=== PATIENT | male | born 1935 | race Caucasian/White ===

== ENCOUNTER 2016-03-05 10:38 | Observation (INO) ==
--- NOTE | 2016-03-05 10:59 | Emergency Department Note ---
Disposition Clinical Impression: Atrial fibrillation, Dyspnea on exertion, Hypertension, Hyperlipidemia, Obesity , Frail elderly Disposition: Admitted As Inpatient Referrals: NO,PCP [Non-Partnered Physician] - Forms: ED Satisfaction Letter General Adult HPI - General Chief complaint: ED Shortness of Breath/Dyspnea Stated complaint: Shortness of breath, abnormal EKG Time Seen by Provider: 03/05/16 10:58 Source: patient, family Limitations: no limitations - History of Present Illness HPI Narrative: 81-year-old male with a history of cardiac arrhythmia and ablation reports to the emergency department with concerns for shortness of breath. The patient has been progressively short of breath over the last several months, things are getting much worse per his son. The patient can barely get out of the house and get to a car without becoming markedly short of breath. The patient's son was worried so he took the patient to see his primary care physician who noted an abnormal EKG and cited concerns regarding dyspnea likely secondary to a cardiac source. ED evaluation was recommended. The patient saw his primary care physician yesterday, he came in this morning. The patient has not had a significant cough. He does not have any underlying COPD asthma or previous history of DVT PE or cancer. There is no history of coronary artery disease. The patient has no history of arrhythmia status post ablation. There is concern for atrial fibrillation. The patient is not anticoagulated. He has not any strokelike symptoms, no dysarthria or confusion or any problem walking and talking hearing seeing or speaking. There is been no recent syncope. No fever abdominal pain vomiting diarrhea or acute back pain reported or noted. The patient describes significant exertional dyspnea which is worsening. There is no history of tomasz chest pain left arm or left jaw pain. The patient is elderly, hypercholesterolemia, and hypertensive. Onset (ago): day(s) Pain Scale: 0 - Related Data Allergies Allergy/AdvReac Type Severity Reaction Status Date / Time Penicillins Allergy See Verified 03/05/16 10:45 Comments All systems ED: reviewed and negative except as stated. Past Medical History - Past Medical History Medical history: Reports: hyperlipidemia, hypertension, other - Social History Smoking Status: Never smoker Alcohol use: Reports: occasionally Physical Exam - General Limitations: no limitations General appearance: alert, in no apparent distress - Head Head exam: atraumatic, normocephalic, normal inspection - Eye Eye exam: Present: normal appearance, PERRL, EOMI - ENT ENT exam: normal exam, normal oropharynx, mucous membranes moist, normal external ear exam - Neck Neck exam: Present: normal inspection, full ROM, trachea midline. Absent: tenderness - Chest Chest inspection: Present: symmetric chest wall rise. Absent: tenderness - Respiratory Respiratory exam: Present: normal lung sounds bilaterally. Absent: respiratory distress - Cardiovascular Cardiovascular exam: Present: regular rate, irregular rhythm - Abdominal Exam Abdominal exam: Present: soft, Non-Tender. Absent: tenderness, distention, guarding, rebound, rigidity - Extremities Exam Extremities exam: Present: normal inspection, full ROM, normal capillary refill. Absent: tenderness, pedal edema, joint swelling, calf tenderness - Expanded Lower Extremity Exam Lower leg exam: Absent: Homans' sign Neurovascular/Tendon exam: Absent: motor deficit, sensory deficit, tendon deficit - Back Exam Back exam: Present: normal inspection, full ROM. Absent: tenderness, CVA tenderness (R), CVA tenderness (L), vertebral tenderness - Neurological Exam Neurological exam: Present: alert, oriented X3, CN II-XII intact. Absent: motor sensory deficit - Psychiatric Psychiatric exam: Present: normal affect, normal mood - Skin Skin exam: Present: warm, dry, intact, normal color. Absent: rash, cyanosis, diaphoresis, erythema, pallor, mottled Course Vital Signs Temperature 98.4 F 03/05/16 10:39 Pulse Rate 69 03/05/16 10:39 Respiratory Rate 18 03/05/16 10:39 Blood Pressure 143/77 03/05/16 10:39 O2 Sat by Pulse Oximetry 94 L 03/05/16 10:39 Temperature 98.4 F 03/05/16 10:39 Pulse Rate 83 03/05/16 13:00 Respiratory Rate 18 03/05/16 13:00 Blood Pressure 135/81 03/05/16 13:00 O2 Sat by Pulse Oximetry 97 03/05/16 13:00 Oxygen Delivery Oxygen Delivery Room Air Medical Decision Making - [facility] Narrative Medical decision making narrative: The patient is elderly, hyperlipidemic, hypertensive, obese, has not had any recent provocative cardiac testing, and appears to be in cardiac arrhythmia/ atrial fibrillation which is not his usual rhythm. He had a remote ablation, he is not anticoagulated. The patient has had significant dyspnea on exertion which has been progressive. Based on his vascular risk factors, new onset EKG findings, and acute symptomatology, I felt it would be appropriate to admit the patient to the hospital. I reviewed the case with the hospitalist on-call who has accepted the patient to their care. Aspirin was given in the ED. - Lab Data Lab results reviewed: Yes I reviewed the patient's lab results. Result diagrams: 03/05/16 11:25 03/05/16 11:25 Lab Results 03/05/16 03/05/16 03/05/16 Range/Units 11:20 11:25 11:25 WBC 6.3 (4.3-11.1) K/mcL RBC 5.02 (4.19-5.50) M/mcL Hgb 15.9 (12.9-16.9) g/dL Hct 47.6 (37.5-50.1) % MCV 94.8 (83.0-100.0) fL MCH 31.7 (28.0-33.3) pg MCHC 33.4 (31.6-35.5) g/dL RDW 12.7 (11.5-14.5) % Plt Count 259 (140-400) K/mcL MPV 10.2 (9.4-12.4) fL Immature Gran % 0.3 (0-4) % Seg Neutrophils % 57.4 % Lymphocytes % 30.9 % Monocytes % 7.0 % Eosinophils % 3.8 % Basophils % 0.6 % Neutrophils # 3.6 (1.6-8.9) K/mcL Lymphocytes # 2.0 (0.6-4.6) K/mcL Monocytes # 0.4 (0.0-1.3) K/mcL Eosinophils # 0.2 (0.0-0.6) K/mcL Basophils # 0.0 (0.0-0.2) K/mcL PT 12.1 (9.4-12.1) Seconds INR 1.1 APTT 29.9 (26.0-36.0) Seconds Sodium (136-145) mEq/L Potassium (3.5-4.5) mEq/L Chloride (98-109) mEq/L Carbon Dioxide (19-29) mEq/L BUN (8-26) mg/dL Creatinine (0.72-1.25) mg/dL Est GFR ( Amer) (> 60) Est GFR (Non-Af Amer) (> 60) BUN/Creatinine Ratio (6-26) Glucose (70-99) mg/dL Calculated Osmolality (280-300) Lactic Acid 1.5 (0.5-2.2) mmol/L Calcium (8.6-10.8) mg/dL Troponin I (0-0.03) ng/mL C-Reactive Protein (Less than 5) mg/L B-Natriuretic Peptide (0-100) pg/mL 03/05/16 03/05/16 03/05/16 Range/Units 11:25 11:25 11:25 WBC (4.3-11.1) K/mcL RBC (4.19-5.50) M/mcL Hgb (12.9-16.9) g/dL Hct (37.5-50.1) % MCV (83.0-100.0) fL MCH (28.0-33.3) pg MCHC (31.6-35.5) g/dL RDW (11.5-14.5) % Plt Count (140-400) K/mcL MPV (9.4-12.4) fL Immature Gran % (0-4) % Seg Neutrophils % % Lymphocytes % % Monocytes % % Eosinophils % % Basophils % % Neutrophils # (1.6-8.9) K/mcL Lymphocytes # (0.6-4.6) K/mcL Monocytes # (0.0-1.3) K/mcL Eosinophils # (0.0-0.6) K/mcL Basophils # (0.0-0.2) K/mcL PT (9.4-12.1) Seconds INR APTT (26.0-36.0) Seconds Sodium 139 (136-145) mEq/L Potassium 3.3 L (3.5-4.5) mEq/L Chloride 103 (98-109) mEq/L Carbon Dioxide 26 (19-29) mEq/L BUN 7 L (8-26) mg/dL Creatinine 0.87 (0.72-1.25) mg/dL Est GFR ( Amer) > 60 (> 60) Est GFR (Non-Af Amer) > 60 (> 60) BUN/Creatinine Ratio 8 (6-26) Glucose 89 (70-99) mg/dL Calculated Osmolality 285 (280-300) Lactic Acid (0.5-2.2) mmol/L Calcium 9.3 (8.6-10.8) mg/dL Troponin I 0.00 (0-0.03) ng/mL C-Reactive Protein 1 (Less than 5) mg/L B-Natriuretic Peptide 72 (0-100) pg/mL - Radiology Data Radiology results reviewed: Yes I reviewed the patient's radiology results. - EKG Data EKG #1 EKG attestation: Yes I reviewed and interpreted this EKG. Rhythm: A.Fib
[2016-03-05] MEDS ORDERED: Aspirin 325 MG TABLET PO ONE (11:30)
[2016-03-05 11:34] LABS: Basophils % 0.6 %; Eosinophils # 0.2 K/mcL (0.0-0.6); Eosinophils % 3.8 %; Hematocrit 47.6 % (37.5-50.1); Hemoglobin 15.9 g/dL (12.9-16.9); Immature Granulocytes % 0.3 % (0-4); Lymphocytes % 30.9 %; Mean Corpuscular HGB Conc 33.4 g/dL (31.6-35.5); Mean Corpuscular Hemoglobin 31.7 pg (28.0-33.3); Mean Corpuscular Volume 94.8 fL (83.0-100.0); Mean Platelet Volume 10.2 fL (9.4-12.4); Monocytes # 0.4 K/mcL (0.0-1.3); Neutrophils # 3.6 K/mcL (1.6-8.9); Platelet Count 259 K/mcL (140-400); Red Blood Count 5.02 M/mcL (4.19-5.50); Red Cell Distribution Width 12.7 % (11.5-14.5); Segmented Neutrophils % 57.4 %
[2016-03-05 11:41] LABS: INR 1.1; Prothrombin Time 12.1 Seconds (9.4-12.1)
[2016-03-05 11:44] LABS: Activated Partial Thrombo Time 29.9 Seconds (26.0-36.0)
[2016-03-05 11:45] LABS: BUN/Creatinine Ratio 8 (6-26); Blood Urea Nitrogen 7 mg/dL (8-26); Calcium 9.3 mg/dL (8.6-10.8); Carbon Dioxide 26 mEq/L (19-29); Chloride 103 mEq/L (98-109); Glucose 89 mg/dL (70-99); Osmolality,Calculated 285 (280-300); Potassium 3.3 mEq/L (3.5-4.5); Sodium 139 mEq/L (136-145); eGFR For African Americans > 60 (> 60); eGFR For Non-African Americans > 60 (> 60)
[2016-03-05 11:56] LABS: C-Reactive Protein 1 mg/L (Less than 5)
[2016-03-05] MEDS ORDERED: Naloxone 0.4 MG/ML INJ IVP PRN (16:35)
[2016-03-05] MEDS ORDERED: Acetaminophen 325 MG TABLET PO PRN (16:35)
--- NOTE | 2016-03-05 17:23 | Internal Med History&Physical ---
Date of Encounter: 03/05/16 Time of Encounter: 15:45 Assessment and Plan (1) Atrial fibrillation Current visit: Yes Status: Acute New-onset, rate-controlled. Continue Telemetry monitoring and trend Troponins; monitor vitals closely; 2D Echocardiogram to assess for valvular abnormalities and LVEF; may need to be on ASA and beta-simran; will determine the need for anticoagulation after Echo reports; Cardiology consult as needed; Qualifiers: Atrial fibrillation type: paroxysmal Qualified Code(s): I48.0 - Paroxysmal atrial fibrillation (2) Dyspnea on exertion Current visit: Yes Status: Chronic Progressively worsening dyspnea and orthopnea- CHF or underlying pulmonary HTN and lung disease, although he has no known h/o- cardiopulmonary problems. Continue Telemetry and check Echocardiogram and consider CT chest if Echo is normal; no evidence of volume overload and no pleural effusions on chest XRay; supportive care; supplemental O2 as needed; (3) Hyperlipidemia Current visit: Yes Status: Chronic Qualifiers: Hyperlipidemia type: unspecified Qualified Code(s): E78.5 - Hyperlipidemia , unspecified (4) Hypertension Current visit: Yes Status: Chronic resume home meds; Qualifiers: Hypertension type: essential hypertension Qualified Code(s): I10 - Essential (primary) hypertension Internal Medicine - H&P: HPI Chief complaint: Worsening shortness of breath Admitted From: Emergency Dept Plans for Post Hospital Care: Home History of present illness: Mr. Cheung is a 81 year old male with no significant cardiac history, was sent from his PCP office for evaluation of abnormal EKG. Patient reports that for the last few months, he has been getting progressively more short of breath, both at rest and exertion, associated with 4-pillow orthopnea, His son reports that patient has been reluctant to present to a doctor until now, but he was noted to be exceedingly short of breath even after minimal exertion. He reports no particular chest pain or tightness, leg swelling and does have intermittent palpitations, especially when trying to sleep at night. No dizziness, syncope, nausea, vomiting. Patient underwent ablation procedure several years ago for rapid heart rate per the son, and has done well since then. Past Med Surg Social Fam HX - Past Medical History Medical history: hyperlipidemia, hypertension, other - Past Surgical History Surgical History: appendectomy - Social History Smoking Status: Former smoker Smokeless Tobacco Status: No Alcohol use: occasionally Drug use: none Occupational status: retired Current living situation: Home - Independent Activity Level: Independent ambulation Recent Out of Country Travel Within the Last 8 Weeks: No Exposure or Possible Exposure to Illness During Travel: No - Family History Brother Hx Family Cardiac Disorders: Yes (MD) Internal Medicine - H&P: Meds Hydrochlorothiazide 25 mg PO DAILY 03/05/16 [History] Nabumetone [Relafen] 500 mg PO BID 03/05/16 [History] Pravastatin Sodium [Pravachol] 40 mg PO DAILY 03/05/16 [History] Allergies Penicillins Allergy (Verified 03/05/16 10:45) See Comments patient unsure of reaction All Systems PM: A 10-system review of systems was performed and is negative for pertinent findings except as documented above in the HPI. - Constitutional Constitutional: no chills, no fever(s), no night sweats - EENT Eyes: no change in vision, no discharge, no pain, no photophobia Ears: no ear discharge, no ear pain, no tinnitus Nose, mouth and throat: no dysphagia, no nasal discharge, no neck pain, no sore throat - Cardiovascular Cardiovascular ROS IM: dyspnea, dyspnea on exertion, irregular heart rhythm, orthopnea, palpitations - Respiratory Respiratory: dyspnea, dyspnea on exertion, no cough, no wheezing, no excessive phlegm production - Gastrointestinal Gastrointestinal: no abdominal pain, no diarrhea, no hematemesis, no hematochezia, no melena, no nausea, no vomiting - Musculoskeletal Musculoskeletal ROS IM: no numbness, no tingling - Integumentary Integumentary IM: no rash, no unusual bruising - Neurological Neurological ROS: no confusion, no convulsions, no focal weakness, no numbness, no tingling, no tremor(s) - Hematologic/Lymphatic Hematologic/Lymphatic: no easy bruising - Constitutional Vitals: Temp Pulse Resp BP Pulse Ox 97.7 F 77 16 156/79 94 L 03/05/16 15:08 03/05/16 15:08 03/05/16 15:08 03/05/16 15:08 03/05/16 15:08 General appearance: Present: A&O X 3, answers questions appropriately - Head Head exam: Present: atraumatic, normocephalic - Neck Neck exam general surgery: Present: supple, trachea midline. Absent: lymphadenopathy - Respiratory Respiratory exam: Present: CTAB. Absent: accessory muscle use, rales, rhonchi, wheezes - Cardiovascular Cardiovascular exam: Present: irregular rhythm, +S1, +S2. Absent: diastolic murmur, gallop, rubs, systolic murmur - GI/Abdominal GI/Abdominal exam: Present: bruit, normal bowel sounds, soft, no peritoneal signs. Absent: distended, tenderness - Extremities Exam Extremities exam: Present: full ROM, warm, radial pulses palpable and symetrical. Absent: calf tenderness, cyanotic, pedal edema - Neurological Exam Neurological exam: Present: CN II-XII intact, oriented X3, no focal deficits. Absent: pronater drift, facial droop, speech deficit - Skin Skin exam: Present: dry, intact Internal Med - H&P Results - Labs CBC & Chem 7: 03/06/16 04:43 03/06/16 04:43 - EKG Data -: EKG Interpreted by Myself - Impressions A.fib- rate-controlled- irregular, narrow complex, with intermittent PVCs or aberrant conduction?
[2016-03-06 05:21] LABS: Basophils % 0.5 %; Eosinophils # 0.3 K/mcL (0.0-0.6); Eosinophils % 5.6 %; Hematocrit 43.4 % (37.5-50.1); Hemoglobin 14.7 g/dL (12.9-16.9); Immature Granulocytes % 0.3 % (0-4); Lymphocytes # 2.1 K/mcL (0.6-4.6); Lymphocytes % 34.3 %; Mean Corpuscular HGB Conc 33.9 g/dL (31.6-35.5); Mean Corpuscular Hemoglobin 32.1 pg (28.0-33.3); Mean Corpuscular Volume 94.8 fL (83.0-100.0); Mean Platelet Volume 10.5 fL (9.4-12.4); Monocytes # 0.5 K/mcL (0.0-1.3); Monocytes % 8.9 %; Platelet Count 217 K/mcL (140-400); Red Blood Count 4.58 M/mcL (4.19-5.50); Segmented Neutrophils % 50.4 %
[2016-03-06 05:47] LABS: BUN/Creatinine Ratio 11 (6-26); Blood Urea Nitrogen 9 mg/dL (8-26); Calcium 8.8 mg/dL (8.6-10.8); Carbon Dioxide 29 mEq/L (19-29); Chloride 103 mEq/L (98-109); Glucose 102 mg/dL (70-99); Osmolality,Calculated 287 (280-300); Potassium 3.2 mEq/L (3.5-4.5); Sodium 139 mEq/L (136-145); eGFR For African Americans > 60 (> 60); eGFR For Non-African Americans > 60 (> 60)
[2016-03-06] MEDS ORDERED: hydroCHLOROthiazide 25 MG TABLET PO SCH (09:15)
--- NOTE | 2016-03-06 11:57 | ECHO - Doppler Report ---
Echocardiogram Name: Jordyn Cheung Date of Study: 03/05/2016 Date: 1935 Ht: 70.0 in Medical Record#: [id number] Age: 81 Wt: 187.0 lb Gender: Male BSA: 2.03 Order #: [id number] [facility] Room #: 3B13 Reading Physician: Haris Hicks DO, CHERYL, NOELLE SAAVEDRA Nozzle [employer] Sprayer Helper: Mindi Infante Ordering Physician: Hanna Douglas MD Primary Physician: Kuldip Levy MD Indications: Progressive dyspnea, orthopnea, new afib Impressions: LVEF 60%. Mild concentric left ventricular hypertrophy. Normal LV chamber size and function. Mild left ventricular diastolic dysfunction. Normal right ventricular structure and function. No evidence of pulmonary hypertension. No significant valvular dysfunction. Left Ventricular Wall Motion: Rest Echo Findings All wall segments showed normal motion. Findings: Study Quality * Technically sub-optimal due to poor echocardiographic windows. ECG Findings * Sinus rhythm with PACs. Left Ventricle * LVEF 60%. * Normal LV chamber size and function. * Mild concentric left ventricular hypertrophy. * Mild left ventricular diastolic dysfunction. Right Ventricle * Normal right ventricular structure and function. Left Atrium * Mildly dilated left atrium. Right Atrium * Normal right atrial size. Interatrial Septum * Interatrial septum not well evaluated. Aortic Valve * Normal aortic valve structure. * No aortic regurgitation. * No aortic stenosis. Mitral Valve * Mild mitral annular calcification. * No mitral stenosis. * Trace mitral regurgitation. Tricuspid Valve * Normal tricuspid valve structure and function. * Trace tricuspid regurgitation. * No evidence of pulmonary hypertension. Pulmonic Valve * Normal pulmonic valve structure and function. * Trace pulmonic regurgitation. Aorta * Normally sized aortic root. Pericardium * There is a trivial pericardial effusion present. IVC * Normal IVC dimensions and inspiratory collapse. Pulmonary Artery * Normal visualized portions of the main pulmonary artery. History Hypertension Hypercholesteremia Years 25 Packs 3.5 Measurements: BP: 156/ 79 2D Normal Values RVIDd: 3.30 cm <2.7 cm IVSd: 1.20 cm 0.6 - 1.0 cm LVIDd: 3.70 cm 3.7 - 5.6 cm LVPWd: 1.20 cm 0.6 - 1.1 cm LVIDs: 2.60 cm 1.5 - 3.6 cm AO: 3.00 cm < 4.0 cm LA: 3.60 cm 2.0 - 4.0cm %FS: 29.70 cm >25 % LA volume: 40 Mitral Valve Peak E:.68 m/sec Peak A:1.05 m/sec E/A Ratio:0.6 Peak E' Lat Dorian:8.58 cm/s Peak E' Med Dorian:10.4 cm/s E/E' Lat Ratio:7.9 E/E' Med Ratio:6.5 Tricuspid Valve TV Regurg Peak Grad: 18.00mmHg TV Regurg Peak Dorian: 2.12m/sec Updated by Haris Hicks DO, FACSushil, QUENTIN, NOELLE on 03/06/2016 11:49:41 AM electronically signed on 03/06/2016 11:51:42 AM with status of Final Wall Motion Whitney: 1=Normal, 2=Hypokinesis, 3=Akinesis, 4=Dyskinesis, 5=Aneurysmal, 6=Hyperkinetic, X=Not Visualized (Blank)=Missing
[2016-03-06 15:41] VITALS: BP 124/61
--- NOTE | 2016-03-06 16:26 | Electrocardiograph Report ---
[facility] Test Date: 2016-03-05 Pat Name: Jordyn Cheung Department: 104 Room: 3B13 Gender: M Hogshead Hooper: ROM : 1935 Requested By: Rene Salazar Order Number: [id number] Reading MD: Haris Hicks DO Measurements Intervals Hammond Rate: 68 P: CO: 0 QRS: 69 QRSD: 84 T: 51 QT: 383 QTc: 400 Interpretive Statements Sinus rhythm with PACs and PVCs Electronically Signed On 03-06-16 16:24:32 EST by Haris Hicks DO
--- NOTE | 2016-03-06 17:59 | Discharge Summary ---
Date of Encounter: 03/06/16 Time of Encounter: 10:30 (and 1700) - Discharge Diagnosis (1) Emphysema of lung Priority: Secondary Status: Chronic Comments: Imaging of the chest revealing emphysema. Patient stating he used to smoke 3-1/ 2 packs per day but he stopped 40 years ago. Follow-up outpatient. No acute processes. (2) Quit using tobacco in remote past Priority: Secondary Status: Chronic (3) Hypokalemia Priority: Primary Status: Acute Comments: Mild, replaced prior to discharge, recommend follow-up outpatient. (4) Atrial fibrillation Priority: Primary Status: Acute Comments: Status post ablation several years ago. Rate controlled without usage of beta simran. Mildly bradycardic at times, beta simran not initiated at this time. Discussed anticoagulation therapy with the patient given that his [id number] score of 3 (age, htn). Patient stated that he would rather follow-up with his primary care provider regarding initiation of new medication stating his primary care provider knows him better than other providers. Qualifiers: Atrial fibrillation type: paroxysmal Qualified Code(s): I48.0 - Paroxysmal atrial fibrillation (5) Obesity Priority: Secondary Status: Chronic (6) Dyspnea on exertion Priority: Secondary Status: Chronic Comments: Unknown causation at this time. Echocardiogram ruling out heart failure. Chest x-ray revealing chronic emphysema with no acute processes. Recommend outpatient sleep study. Also recommend treatment for the patient's atrial fibrillation by his primary care provider. See prior note for atrial fibrillation. (7) Hyperlipidemia Priority: Secondary Status: Chronic Qualifiers: Hyperlipidemia type: unspecified Qualified Code(s): E78.5 - Hyperlipidemia , unspecified (8) Hypertension Priority: Secondary Status: Chronic Comments: Controlled. Recommend continued follow-up outpatient. Qualifiers: Hypertension type: essential hypertension Qualified Code(s): I10 - Essential (primary) hypertension - Discharge Medications Prescriptions: Omeprazole [PriLOSEC] 20 mg PO DAILY@0630 #30 capsule. Home Medications: Hydrochlorothiazide 25 mg PO DAILY 03/05/16 [History] Nabumetone [Relafen] 500 mg PO BID 03/05/16 [History] Pravastatin Sodium [Pravachol] 40 mg PO DAILY 03/05/16 [History] Omeprazole [PriLOSEC] 20 mg PO DAILY@0630 #30 capsule. 03/06/16 [Rx] Allergies/Adverse Reactions: Allergies Penicillins Allergy (Verified 03/05/16 10:45) See Comments patient unsure of reaction Procedures/tests Complete & Pending: Procedures Performed prior 72 hours Category Date Time Status CT chest w/o contrast [CT chest wo con] [CT] Routine Cat Scan 03/06/16 14:30 Draft EV echocardiogram Routine Y 03/05/16 16:37 Completed Date of admission: 03/05/16 13:52 Primary care physician: Kuldip Levy MD Discharging clinician: Veronica Villar Anticipated date of discharge: 03/06/16 - Patient Status Disposition: Home, Self-Care Condition: Fair Functional capacity at discharge: independent ambulation Overall status at discharge: patient is back to baseline - Discharge Instructions Follow Up With: Kuldip Levy MD [Primary Care Provider] - Additional Instructions: Follow-up with primary care provider within one week - Diet and Activity Activity: increase activity as tolerated Diet: low fat, low cholesterol, low salt diet Hospital course: Mr. Cheung is a 81 year old male with no significant cardiac history, hyperlipidemia, hypertension, atrial fibrillation status post ablation several years ago. Patient was sent from his primary care office for a further evaluation of an abnormal EKG. Patient stating over the past few months prior to presentation he has become progressively more short of breath, both at rest and with exertion and also endorses a 4 pillow orthopnea. Patient's son was present with him throughout this admission and states that the patient has been reluctant to present to a doctor prior to this visit. Patient denied chest pain or tightness. He denies leg swelling. He does endorse intermittent palpitations especially when he is trying to sleep at night. Patient denied dizziness, syncope, nausea, vomiting. Patient and son states that he has done well ever since his ablation procedure several years ago. Chest x-ray in the emergency department consistent with mild emphysema. Patient used to be 3-1/2 pack per day smoker but stopped 40 years ago. Patient was admitted to the hospitalist service for further evaluation and management. He was noted to be in atrial fibrillation however with his rate was controlled without the use of rate control medications. He was noted to be bradycardic at times and he was not started on a beta simran during this visit. Regarding his anticoagulation therapy, his [id number] score is a 3 and we briefly discussed anticoagulation therapy however he stated he would rather his primary care provider initiate medications as he knows him better. Echocardiogram unremarkable with ejection fraction of 60% with mild diastolic dysfunction. Patient was euvolemic on examination throughout this admission. No pedal edema. Patient with a slightly distended abdomen however he states that this is his normal size of his abdomen. Chest CT again revealing emphysema without acute processes. With acute cardiac and pulmonic issues ruled out, recommend outpatient sleep study per his primary care provider. Patient's son states that he snores quite loudly. Also recommended further discussion regarding rate control and anticoagulation therapy about his beta simran. I informed the patient that I would rather him stay overnight so that we can watch him on telemetry overnight however he declined stating he wanted to go home. Telemetry reviewed while he was admitted, unremarkable other than atrial fibrillation. Patient initially required supplemental oxygenation however tolerated room air prior to discharge. He was discharged home in stable condition with close outpatient follow-up with his primary care provider recommended. ITS Impressions Chest X-Ray 03/05/16 10:59 IMPRESSION: Mild emphysematous changes. No acute cardiopulmonary disease . D/ / Brady Mosley MD / Brady Mosley MD Interpreting Provider: Brady Mosley MD Chest CT 03/06/16 14:30 IMPRESSION: 1. Emphysema. 2. No suspicious parenchymal lung infiltrate or lung nodule. 3. Sequela of old granulomatous disease. 4. Benign hepatic cysts. D/ / 03/06/2016 15:06:53 Yohan Dutta MD / liset Interpreting Provider: Yohan Dutta MD Echocardiogram impressions: LVEF 60%. Mild concentric left ventricular hypertrophy. Normal LV chamber size and function. Mild left ventricular diastolic dysfunction. Normal right ventricular structure and function. No evidence of pulmonary hypertension. No significant valvular dysfunction. - Time Spent with Patient Total time spent providing and/or coordinating discharge services: - Constitutional Vitals: Temp Pulse Resp BP Pulse Ox 97.7 F 73 16 124/61 95 03/06/16 15:40 03/06/16 15:40 03/06/16 15:40 03/06/16 15:40 03/06/16 15:40 General appearance: Present: A&O X 3, pleasant, no acute distress, answers questions appropriately - Head Head exam: Present: atraumatic, normocephalic - Eye Eye exam: Present: PERRL, conjuntiva pink, sclera anicteric Pupils: Present: PERRL - Neck Neck exam general surgery: Present: supple, trachea midline. Absent: lymphadenopathy - Respiratory Respiratory exam: Present: decreased breath sounds. Absent: accessory muscle use, rales, respiratory distress, rhonchi, wheezes - Cardiovascular Cardiovascular exam: Present: irregular rhythm, RRR, +S1, +S2. Absent: diastolic murmur, gallop, rubs, systolic murmur - GI/Abdominal GI/Abdominal exam: Present: distended, normal bowel sounds, soft, no peritoneal signs. Absent: tenderness - Extremities Exam Extremities exam: Present: warm, radial pulses palpable and symetrical. Absent : calf tenderness, cyanotic, pedal edema - Neurological Exam Neurological exam: Present: alert, CN II-XII intact, normal gait, oriented X3, no focal deficits, strengths equal and symetr throughout. Absent: pronater drift, facial droop, speech deficit - Skin Skin exam: Present: dry, intact, normal color, warm
[2016-03-07] MEDS ORDERED: *HR* Enoxaparin 40 MG/0.4 ML SYRINGE SQ SCH (06:00)
== END 2016-03-06 18:35 | disposition home or self-care (01) ==
LOC: EMEROO 10:38 → 3BNU 10:38
PROVIDERS: ADMIT Internal Medicine; ATTEND Nurse Practitioner Family